=== PATIENT | female | born 1980 | race Caucasian/White ===

== ENCOUNTER 2023-04-10 07:05 | Outpatient (CLI) | payer OTHER ==
[~2023-04-10] VITALS: Ht 162.6 cm; Wt 99.5 kg
[2023-04-10 07:05] VITALS: BP 164/93; O2SAT 100
[~2023-04-10 07:05] MED LIST: ALBUTEROL SULFATE 2.5MG/0.5ML INH NEB SOLN INH PRN; EPINEPHrine INJ 1 MG/ML 1ML AMP IM PRN; diphenhydrAMINE 50MG/ML VIAL IV PRN; methylPREDNISolone 125MG 2ML VIAL IV PRN
[2023-04-10] MEDS ORDERED: IRON SUCROSE 275 MG in NS 250 ML IV ONE (07:40)
[2023-04-10] MEDS ORDERED: IRON SUCROSE 25 MG in NS 23.75 ML IV ONE (07:40)
[2023-04-10] MEDS ORDERED: NS 1,000 ML IV SCH (07:45)
[2023-04-10 10:30] VITALS: BP 125/78; O2SAT 100
[2023-04-10 11:45] VITALS: BP 124/85; O2SAT 100
== END 2023-04-10 11:45 | disposition home or self-care (01) ==
LOC: M INFU 07:05
PROVIDERS: ATTEND Family Medicine
DX: D64.9 Anemia, unspecified (principal); Z91.018 Allergy to other foods; Z91.048 Other nonmedicinal substance allergy status
CPT/HCPCS: 96365; 96366; J1756

== ENCOUNTER 2023-04-17 07:30 | Outpatient (CLI) | payer OTHER ==
[~2023-04-17] VITALS: Ht 162.6 cm; Wt 91.0 kg
[2023-04-17 07:30] VITALS: BP 120/70; O2SAT 100
[~2023-04-17 07:30] MED LIST changes: +NS 1,000 ML IV SCH
[2023-04-17] MEDS ORDERED: IRON SUCROSE 300 MG in NS 250 ML OVER 90 MIN. IV ONE (08:00)
[2023-04-17 10:12] VITALS: BP 137/87; O2SAT 100
== END 2023-04-17 10:15 | disposition home or self-care (01) ==
LOC: M INFU 07:30
PROVIDERS: ATTEND Family Medicine
DX: D64.9 Anemia, unspecified (principal)
CPT/HCPCS: 96365; J1756

== ENCOUNTER 2023-04-24 07:10 | Outpatient (CLI) | payer OTHER ==
[~2023-04-24] VITALS: Ht 162.6 cm; Wt 98.2 kg
[2023-04-24 07:23] VITALS: BP 168/88; O2SAT 98
[2023-04-24] MEDS ORDERED: IRON SUCROSE 300 MG in NS 250 ML OVER 90 MIN. IV ONE (07:30)
[2023-04-24 09:33] VITALS: BP 139/92; O2SAT 98
== END 2023-04-24 09:30 ==
LOC: M INFU 07:10
PROVIDERS: ATTEND Family Medicine
DX: D64.9 Anemia, unspecified (principal); Z91.018 Allergy to other foods; Z91.048 Other nonmedicinal substance allergy status
CPT/HCPCS: 96365; J1756

== ENCOUNTER 2023-05-01 07:08 | Outpatient (CLI) | payer OTHER ==
[~2023-05-01] VITALS: Ht 167.6 cm; Wt 98.0 kg
[2023-05-01] MEDS ORDERED: IRON SUCROSE 300 MG in NS 250 ML OVER 90 MIN. IV ONE (07:25)
[2023-05-01 07:30] VITALS: BP 143/89; O2SAT 100
[2023-05-01 09:25] VITALS: BP 167/72; O2SAT 100
== END 2023-05-01 09:25 ==
LOC: M INFU 07:08
PROVIDERS: ATTEND Family Medicine
DX: D64.9 Anemia, unspecified (principal); Z91.018 Allergy to other foods; Z91.09 Other allergy status, other than to drugs and biological substances
CPT/HCPCS: 96365; 96366; J1756

== ENCOUNTER 2023-05-08 07:19 | Outpatient (CLI) | payer OTHER ==
[~2023-05-08] VITALS: Ht 167.6 cm; Wt 98.0 kg
[2023-05-08] MEDS ORDERED: IRON SUCROSE 300 MG in NS 250 ML OVER 90 MIN. IV ONE (07:30)
[2023-05-08 07:35] VITALS: BP 142/89; O2SAT 100
[2023-05-08 09:20] VITALS: BP 131/82; O2SAT 100
== END 2023-05-08 09:20 ==
LOC: M INFU 07:19
PROVIDERS: ATTEND Family Medicine
DX: D64.9 Anemia, unspecified (principal); Z91.018 Allergy to other foods
CPT/HCPCS: 96365; 96366; J1756